=== PATIENT | female | born 1945 | race Caucasian/White ===

== ENCOUNTER 2021-03-17 10:28 | Observation (INO) | payer OTHER ==
[~2021-03-17] VITALS: Ht 152.4 cm; Wt 74.4 kg
--- NOTE | ~2021-03-17 | O ---
[facility] [address] [place] [address] OPERATIVE REPORT Name: HANANE ROACH Room #: REG [facility] [employer] [facility].#: [id number] Admission: 03/17/21 Attend Phys: Ammon López MD Discharge: Date of : 43 Report #: [id number] THIS REPORT FOR: cc: Alley Orellana MD, Kristine MD Williams,Ammon AL ~ DOC #: [id number] cc: MD Ammon Hernandez MD DATE OF SERVICE: 03/17/2021 PREOPERATIVE DIAGNOSES: 1. Basal cell carcinoma of the nose. 2. Complex Mohs defect of the nose, full thickness, approximately 4 x 4 cm. POSTOPERATIVE DIAGNOSES: 1. Basal cell carcinoma of the nose. 2. Complex Mohs defect of the nose, full thickness, approximately 4 x 4 cm. PROCEDURES PERFORMED: 1. Wound bed preparation. 2. Adjacent tissue transfer of the nose 5-10 square cm. 3. Paramedian forehead flap. 4. Septal cartilage graft. 5. Intermediate wound closure, approximately 10 cm. PRIMARY SURGEON: Ammon López MD TYPE OF ANESTHESIA: General. SUBJECT SCIENTIFIC RESEARCH: None. COMPLICATIONS: None. ESTIMATED BLOOD LOSS: 50 mL. SPECIMENS: None. INDICATIONS FOR THE PROCEDURE: The patient is a 75-year-old female who earlier this week underwent Mohs micrographic excision for a large basal cell carcinoma of the left nasal sidewall and ala, which resulted in a full thickness complex defect of the left nasal ala, nasal tip, nasal sidewall and nasal dorsum. She was referred to me for formal reconstruction by Dr. Reid Dietz. The patient was counseled in the office about benefits and risks of reconstruction and she elected to move forward after signing consent in the office. [address] [address] OPERATIVE REPORT Name: HANANE ROACH Room #: REG [facility] M.R.#: [id number] Admission: 03/17/21 Attend Phys: Ammon López MD Discharge: Date of : 43 Report #: [id number] DESCRIPTION OF PROCEDURE: The patient was identified in the preoperative area before being transported to the operating room and placed supine on the operating table. At this point, general endotracheal anesthesia was induced and a timeout was called to ensure the patient identity and procedure to be performed. Next, the nasal subunits were marked and the periphery of the nasal wound and entire forehead was injected locally with 1% lidocaine 1:100,000 epinephrine solution mixed with tranexamic acid. This was allowed to sit for approximately 5-10 minutes time while the patient was prepped and draped in normal fashion. Starting first the entire wound bed was debrided and prepared for reconstruction. Several amounts of old scab and scar tissue were removed along with some granulation tissue that had begun to form. This revealed the full thickness defect that was remeasured and noted to be approximately 4 x 4 cm. I elected to perform a left nasal sidewall skin turn-in flap to reconstruct the inner lining of the nose given its location and size; therefore, the nasal sidewall was incised on its upper 3 arms and rotated down into the defect leaving a small bridge of skin in between this, which will later be taken down. This was sutured into position to the southern ute septal mucosa and sidewall mucosa using 5-0 fast absorbing gut suture in an interrupted fashion. Next, cartilage needed to be obtained; therefore, I elected to approach the septum from above. Bilateral submucoperichondrial flaps were raised and a very large cartilage and bony septal graft was harvested and placed in a saline bath. The septal access point superiorly was closed using 5-0 fast absorbing gut suture. This completed the reconstruction of the inner lining and it lined up well with the ala. Next, I further trimmed the defect to remove the remaining subunit of the lateral left ala and of the caudal end of the tip subunit to prepare for future reconstruction. Next, I fashioned the cartilage and bony grafts into a columellar strut made of perpendicular plate of the ethmoid along with upper lateral and lower lateral cartilage graft reconstructions using the septal cartilage, as it was already curved from a septal deviation. These were sutured into position using 5-0 nylon suture in an interrupted fashion. At this point, the inner lining and the cartilage had been reconstructed and allowed for good structural support of the nose. At this point, I then marked out on the patient's forehead a templated forehead flap taken from the periphery of the defect and transposed to the superior aspect of the forehead. Of note, the patient had a very low hairline and a short forehead; therefore, the distal end of the flap did incorporate several scalp hairs. I did my best to destroy the hair follicles, so they do not continue to grow back. At this point, the skin of the forehead was sharply incised with a #15 blade down to the supraperiosteal plane and was elevated in this plane down to an area approximately 1.5 cm superior to the supratrochlear foramen. At this point, a sharp periosteal incision was made with a #15 blade and subperiosteal elevation was performed using a Oak elevator. The pedicle was protected and further incisions of the pedicle edges were made to allow for sufficient reach and rotation of the inter-bladed flap. Hemostasis was achieved with bipolar cautery. At this [facility] [address] [place] [address] OPERATIVE REPORT Name: HANANE ROACH Room #: REG [facility]#: [id number] Admission: 03/17/21 Attend Phys: Ammon López MD Discharge: Date of : 43 Report #: [id number] point, the flap was flipped over and thinned considerably down to the layer of the dermis more distally and proximally. At this point, the flap was begun to be inset to the distal end of the nasal reconstruction with 5-0 interrupted nylon suture and more proximally in the area where the sidewall turn-in flap was, this was also inset. Of note, there was a small subcutaneous skin bridge, which was left intact, which will be excised and revised in approximately 3-4 weeks' time, at the second stage. This completed the inset of the forehead flap onto the nose. Attention was then turned to closing the forehead. Wide undermining of the forehead skin was performed to each temporal ridge and then layered closure using 0 Vicryl in the deep galeal layer and frontalis layer followed by skin closure using a 5-0 running locking nylon inferiorly and up into the hairline where standing cutaneous deformities had been removed. I elected to use skin stanley. Of note, given that the patient had very little mobility of her forehead skin, there was an open defect that had to be left at the superior aspect of her forehead, which was cleaned and closed as much as possible using 0 Vicryl stitch, and then at this point, all incisions were thoroughly cleansed using sterile saline solution. Triple antibiotic ointment was applied to all incision lines. A strip of Xeroform was placed around the skin pedicle along with triple antibiotic ointment over this and the defect on the superior aspect of the forehead was also filled with triple antibiotic ointment. Finally, a Merocel expanding nasal sponge was left in the patient's left nasal cavity to allow for support of the healing flaps and grafts. Please note that all instrument, sponge and needle counts were correct x2. The patient was then reversed from anesthesia and transported to the PACU in stable condition. DISPOSITION: The patient may be discharged from the PACU after meeting general discharge criteria. She has been given prescriptions for pain medication, antibiotic and steroid that was to be used as directed. She is not to engage in any strenuous activity or heavy lifting. She should take very good care of the wound, keeping it very clean each day and applying ointment to all incision lines and to the open wound on the superior aspect of her forehead each day. I will see her in 1 week's time for a postoperative appointment and to remove the packing from her left nasal cavity. I anticipate division and inset of the flap in approximately 3-4 weeks' time. MD MINDY Mercedes/FRANKI/JUSTINE By: [id number] Ammon López MD /nt
[~2021-03-17 10:28] MED LIST: ATORVASTATIN CA20 MG PO; DILTIAZEM 24HR240 M1 PO; ELIQUIS5 MG PO; LEVOTHYROXINE25 MCG PO; MULTI VITAMIN1 EACH PO; TEGRETOL XR200 MG PO
[2021-03-17 11:55] VITALS: BP 154/81
[2021-03-17 12:04] LABS: HEMATOCRIT 38.3 % (37.0-47.0); HEMOGLOBIN 13.3 gm/dL (12.0-15.0); MCH 31.5 pg (26.0-34.0); MCHC 34.8 g/dL (28.0-37.0); MCV 90.4 fL (80.0-100.0); RBC 4.24 mil/uL (4.20-5.00); RDW 13.4 % (10.5-14.5); WBC 7.8 thou/uL (4.0-11.0)
[2021-03-17 12:09] LABS: POTASSIUM 4.2 mmol/L (3.5-5.1)
[2021-03-17 12:15] LABS: ALBUMIN 3.7 g/dL (3.4-5.0); TOTAL BILIRUBIN 0.4 mg/dL (0.2-1.0); TOTAL PROTEIN 6.8 g/dL (6.4-8.2)
--- NOTE | 2021-03-17 13:19 | EKG ---
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1945 Requested By: Ammon López Order Number: [id number] MD: Ross Zarate Measurements Intervals [place] Rate: 83 P: 44 WI: 165 QRS: -27 QRSD: 90 T: -2 QT: 374 QTc: 440 Interpretive Statements Sinus rhythm Abnormal R-wave progression, late transition LVH by voltage Borderline T abnormalities, inferior leads Baseline wander in lead(s) V6 No previous ECG available for comparison Electronically Signed On 03-17-2021 13:19:21 CDT by Ross Zarate [email or web address] <ELECTRONICALLY SIGNED> By: Ross Zarate MD, [facility] 03/17/21 1319 1148 1148 Ross Zarate MD, FACC /EPI
[2021-03-17 17:44] LABS: CALCIUM 8.8 mg/dL (8.5-10.1); POTASSIUM 4.3 mmol/L (3.5-5.1)
[2021-03-17 20:19] VITALS: BP 165/88
[2021-03-17 20:30] VITALS: BP 150/108
[2021-03-17 20:40] VITALS: BP 166/85
[2021-03-17 20:55] VITALS: BP 158/81
--- NOTE | 2021-03-18 02:36 | NUR ---
PT WAS TRANDFERRED TO THE UNIT FROM THE PACU IN A STABLE CONDITION.INCISION NOTED FROM HER MID FOREHEAD DOWN TO HER NOSE.L NARE PACKED WITH GAUZE,DRAINAGE NOTED FROM IT.PT DENIED PAIN SO FAR.ORDER NOTED AND CARRIED OUT FOR SODIUM CL.VACATION PLANNER ON DUTY HERE TO SEE PT.CALL LIGHT WITHIN REACH.
[2021-03-18 04:04] VITALS: BP 144/85
[2021-03-18 07:25] VITALS: BP 147/94
[2021-03-18 10:29] LABS: HEMATOCRIT 35.4 % (37.0-47.0); MCH 30.9 pg (26.0-34.0); MCHC 33.9 g/dL (28.0-37.0); MCV 91.2 fL (80.0-100.0); RBC 3.88 mil/uL (4.20-5.00); RDW 13.8 % (10.5-14.5); WBC 12.1 thou/uL (4.0-11.0)
[2021-03-18 10:49] LABS: CALCIUM 8.4 mg/dL (8.5-10.1); CREATININE 1.1 mg/dL (0.6-1.0); POTASSIUM 3.8 mmol/L (3.5-5.1)
[2021-03-18 13:22] VITALS: BP 147/94
--- NOTE | 2021-03-18 14:21 | NUR ---
RN went over all discharge education, all questions answered, IV out and wheeled out wtih . Discharged to home.
== END 2021-03-18 14:21 | disposition home or self-care (01) ==
LOC: OR 10:28 → 4S 20:10
PROVIDERS: Internal Medicine; Student in an Organized Health Care Education/Training Program; ADMIT Hospitalist; ATTEND Otolaryngology
DX: C44.311 Basal cell carcinoma of skin of nose (principal); E87.1 Hypo-osmolality and hyponatremia; I25.10 Atherosclerotic heart disease of native coronary artery without angina pectoris; I10 Essential (primary) hypertension; E03.9 Hypothyroidism, unspecified; E78.5 Hyperlipidemia, unspecified; G40.909 Epilepsy, unspecified, not intractable, without status epilepticus; Z86.73 Personal history of transient ischemic attack (TIA), and cerebral infarction without residual deficits; Z79.899 Other long term (current) drug therapy
CPT/HCPCS: 50010; 50101; 50386; 50417; 50455; 51412; 56524; 56526; 56527; 56845; 57006; 62110; 62900; 70005